=== PATIENT | female | born 1945 | race Caucasian/White ===

== ENCOUNTER 2016-09-27 13:34 | Emergency (ER) | payer MEDICARE, OTHER ==
[~2016-09-27] VITALS: Ht 157.5 cm; Wt 61.2 kg
[~2016-09-27 13:34] MED LIST: ASP81CT PO; EST.625T PO; EZET1TAB43 PO; IBAN150T5 PO; IBUP1TAB PO; IRB150T PO; IRBE300T9 PO; PNT40TEC PO; SAXA1TBM2 PO; SAXA5TAB PO; SOLI10TA4 PO
[2016-09-27] MEDS ORDERED: ESTR0.62 (14:03)
[2016-09-27] MEDS ORDERED: PANT40TA3 (14:03)
[2016-09-27] MEDS ORDERED: IRBE300T18 (14:03)
[2016-09-27 14:25] LABS: BASOPHILS % (AUTO) 0 % (0-10); EOSINOPHILS # (AUTO) 0.1 10^3/uL (0.0-0.3); EOSINOPHILS % (AUTO) 2 % (0-10); LYMPHOCYTES # (AUTO) 1.4 X 10^3 (1.0-4.0); LYMPHOCYTES % (AUTO) 18 % (12-44); MEAN CORPUSCULAR HEMOGLOBIN 33 PG (25-34); MEAN CORPUSCULAR HGB CONC 35 G/DL (32-36); MEAN CORPUSCULAR VOLUME 95 FL (80-99); MEAN PLATELET VOLUME 9.8 FL (7.4-10.4); MONOCYTES # (AUTO) 0.7 X 10^3 (0.0-1.0); MONOCYTES % (AUTO) 9 % (0-12); NEUTROPHILS # (AUTO) 5.6 X 10^3 (1.8-7.8); NEUTROPHILS % (AUTO) 72 % (42-75); PLATELET COUNT 240 10^3/uL (130-400); RED BLOOD COUNT 3.98 10^6/uL (4.35-5.85); RED CELL DISTRIBUTION WIDTH 11.9 % (10.0-14.5); WHITE BLOOD COUNT 7.8 10^3/uL (4.3-11.0)
[2016-09-27] MEDS ORDERED: meTOprolol TARTRATE 25 MG (LOPRESSOR) TABLET PO ONE ×2 (14:30→16:45)
[2016-09-27 14:41] LABS: ALANINE AMINOTRANSFERASE 12 U/L (0-55); ALBUMIN 4.3 G/DL (3.2-4.5); ANION GAP 10 MMOL/L (5-14); ASPARTATE AMINO TRANSFERASE 16 U/L (5-34); BILIRUBIN,TOTAL 0.6 MG/DL (0.1-1.0); BLOOD UREA NITROGEN 12 MG/DL (7-18); BUN/CREATININE RATIO 14; CALCIUM 9.7 MG/DL (8.5-10.1); CARBON DIOXIDE 23 MMOL/L (21-32); CHLORIDE 102 MMOL/L (98-107); CREATININE SERUM 0.88 MG/DL (0.60-1.30); GFR ESTIMATED > 60; GLUCOSE 109 MG/DL (70-105); POTASSIUM 3.9 MMOL/L (3.6-5.0); SODIUM 135 MMOL/L (135-145)
[2016-09-27 15:02] LABS: BILIRUBIN,URINE NEGATIVE (NEGATIVE); KETONES,URINE NEGATIVE (NEGATIVE); LEUKOCYTE ESTERASE ,URINE NEGATIVE (NEGATIVE); NITRITE,URINE NEGATIVE (NEGATIVE); PH,URINE 7 (5-9); PROTEIN,URINE NEGATIVE (NEGATIVE); UROBILINOGEN,URINE NORMAL (NORMAL)
--- NOTE | 2016-09-27 15:05 | Diagnostic Imaging Report ---
CLINICAL INDICATION: Patient with trouble speaking since Saturday. Patient has high blood pressure, no surgery. EXAM: Axial CT scan of the brain performed without IV contrast. COMPARISON: None. FINDINGS: There is no evidence of acute cerebral infarct, intracranial hemorrhage, or gross mass effect. There are focal and patchy areas of low-attenuation white matter changes in both cerebral hemispheres. There is normal conte-white matter distinction. The brain parenchymal volume appears appropriate for patient's age. There is no significant midline shift or herniation. There is no evidence of hydrocephalus. The basal cisterns are unremarkable. The skull, extracranial soft tissue, and orbits are unremarkable. There is mild mucosal thickening in the ethmoid sinus. IMPRESSION: 1: There are focal and patchy areas of low-attenuation white matter changes seen throughout both cerebral hemispheres which may represent chronic small vessel ischemic disease. There is no comparison study to evaluate for interval changes, and if there is concern for acute cerebral infarct, then MRI of the brain would better evaluate. 2: There is no evidence of intracranial hemorrhage, midline shift, or herniation. 3: There is mild ethmoid sinus mucosal thickening. Dictated by: Dictated on workstation # [id number]
[2016-09-27 15:09] LABS: SQUAMOUS EPITHELIAL CELL,UR 0-2 /HPF
--- NOTE | 2016-09-27 16:25 | ED Neurological Problem ---
General Chief Complaint: Neuro-Stroke Like Symptoms Stated Complaint: CONFUSED/HEADACHE Nursing Triage Note: AMBULATED TO ROOM 05 WITHOUT DIFFICULTY. STATES STARTING SATURDAY AROUND NOON SHE BECAME CONFUSED AND COULD NOT GET OUT WHAT SHE WANTS TO SAY OR IS SAYING THE WRONG THING. PT STATES HER SYMPTOMS COME AND GO. PT STATES HER LEFT BREAST HURTS BUT THINKS IT IS RELATED TO A MAMMOGRAM IN JULY SHE HAD. Nursing Sepsis Screen: No Definite Risk Source: patient, family Exam Limitations: no limitations History of Present Illness Time seen by provider: 16:20 Initial Comments The patient is a 71-year-old white female who presents with complaints of some speech difficulty since last Saturday. She reports that they had been to [facility] on Saturday and then were having lunch. She reported that she became aware that she could not say what she wished to say. She could not effectively express herself. There were no visual abnormalities. There was no motor weakness. She reports and her confirms that although the speech is clear the thought is not always correct. For example at breakfast this morning she stated that she had cooked him a good supper. At this time her words are clear and she is quite careful and slow in her delivery Timing/Duration: other (4 days) Associated Symptoms: slurred speech (word salad) Allergies and Home Medications Allergies Coded Allergies: Penicillins (Unverified Allergy, Unknown, 01/04/15) Home Medications Estrogens, Conjugated 0.625 Mg Tablet #90 (Reported) Estrogens,Conjugated 0.625 Mg Tablet 0.625 TAB PO DAILY (Reported) Ezetimibe/Simvastatin 1 Each Tablet 0.5 TAB PO HS (Reported) Ibandronate Sodium 150 Mg Tablet 150 MG PO monthly (Reported) Ibuprofen/Pseudoephedrine Hcl 1 Tab Tablet 1 TAB PO PRN PRN PRN HEADACHE ( Reported) Irbesartan 300 Mg Tablet 300 MG PO DAILY (Reported) Irbesartan 300 Mg Tablet #90 (Reported) Pantoprazole Sod 40 Mg Tab 40 MG PO DAILY (Reported) Pantoprazole Sodium 40 Mg Tablet.dr #90 (Reported) Saxagliptin Hcl/Metformin Hcl 1 Each Tbmp.24hr 1 EACH PO DAILY (Reported) Solifenacin Succinate 10 Mg Tablet 10 MG PO DAILY (Reported) Constitutional: see HPI Eyes: No Symptoms Reported Ears, Nose, Mouth, Throat: no symptoms reported Respiratory: no symptoms reported Cardiovascular: no symptoms reported Gastrointestinal: no symptoms reported Genitourinary: no symptoms reported Musculoskeletal: no symptoms reported Skin: no symptoms reported Psychiatric/Neurological: Other (speech abnormality as described above) Endocrine: No Symptoms Reported Hematologic/Lymphatic: No Symptoms Reported Past Szdwdcu-[id number]-Qqzmpz Hx Patient Social History Alcohol Use: Occasionally Uses Recreational Drug Use: No Smoking Status: Never a Smoker Recent Foreign Travel: No Contact w/Someone Who Travel: No Recent Infectious Disease Expo: No Recent Hopitalizations: No (OUT PT & OVER NIGHT) Physical Abuse Screen: No Sexual Abuse: No Immunizations Up To Date Date of Pneumonia Vaccine: Jan 04, 2010 Date of Influenza Vaccine: Jun 15, 2011 Surgeries HX Surgeries: Yes Respiratory Hx Respiratory Disorders: No Cardiovascular Hx Cardiac Disorders: Yes Cardiac Disorders: Hypertension Neurological Hx Neurological Disorders: No Reproductive System Hx Reproductive Disorders: No Sexually Transmitted Disease: No HIV/AIDS: No Female Reproductive Disorders: Denies Genitourinary Hx Genitourinary Disorders: Yes (incontinence) Gastrointestinal Hx Gastrointestinal Disorders: No Musculoskeletal Hx Musculoskeletal Disorders: No Endocrine Hx Endocrine Disorders: Yes Endocrine Disorders: Diabetes, Non-Insulin dep HEENT HX ENT Disorders: No Loss of Vision: Denies Hearing Impairment: Denies Cancer Hx Cancer: No Psychosocial Hx Psychiatric Problems: No Integumentary HX Skin/Integumentary Disorder: No Blood Transfusions Hx Blood Disorders: No Adverse Reaction to a Blood Tr: No Physical Exam Vital Signs Vital Sign - Last 12Hours 09/27/16 13:56 Temp 98.0 Pulse 94 Resp 18 B/P 239/139 Pulse Ox 98 O2 Delivery Room Air Capillary Refill : Less Than 3 Seconds General Appearance: mild distress other HEENT: PERRL/EOMI normal ENT inspection TMs normal pharynx normal Neck: non-tender full range of motion supple normal inspection Respiratory: chest non-tender lungs clear normal breath sounds no respiratory distress no accessory muscle use respiratory distress Cardiovascular: systolic murmur (grade 1-2 systolic murmur at left upper sternal border) Gastrointestinal: normal bowel sounds non tender soft no organomegaly no pulsatile mass Back: normal inspection Extremities: normal range of motion non-tender normal inspection no pedal edema no calf tenderness normal capillary refill pelvis stable Crainal Nerves: normal hearing normal speech PERRL abnormal eye position Skin: normal color warm/dry Lymphatic: no adenopathy Comments There are occasional minor word errors with speech. There is no facial droop no ptosis. She is able to arch the brow. Manager Leadership Development is 2+ and equal bilaterally. She is able to perform alternating finger to thumb movements bilaterally normally. Biceps and triceps are normal bilaterally. She is able to straight leg lift equally bilaterally she is able to run her heel down the opposing doherty equally and bilaterally. Stroke NIH Stroke Scale Assessment Level of Consciousness: 0=Alert Level of Consciousness-Questio: 0=Answers both month/age LOC Commands: 0=Performs both tasks Gaze: 0=Normal Visual Mayo: 0=No visual loss Facial Movement (Facial Paresi: 0=Normal symmetrical mnt Motor Function-Arms Right: 0=No drift Motor Function-Arms Left: 0=No drift Motor Function-Legs Right: 0=No drift Motor Function-Legs Left: 0=No drift Limb Ataxia: 0=Absent Sensory: 0=Normal:no loss Best Language: 0=No aphasia Dysarthria: 0=Normal Extinction & Inattention: 0=No abnormality Progress/Results/Core Measures Results/Orders Lab Results Laboratory Tests Test 09/27/16 14:10 09/27/16 14:50 Range/Units Alanine Aminotransferase (ALT/SGPT) 12 0-55 U/L Albumin 4.3 3.2-4.5 G/DL Alkaline Phosphatase 46 40-136 U/L Anion Gap 10 5-14 MMOL/L Aspartate Amino Transf (AST/SGOT) 16 5-34 U/L BUN/Creatinine Ratio 14 Basophils # (Auto) 0.0 0.0-0.1 10^3/uL Basophils (%) (Auto) 0 0-10 % Blood Urea Nitrogen 12 7-18 MG/DL Calcium Level 9.7 8.5-10.1 MG/DL Carbon Dioxide Level 23 21-32 MMOL/L Chloride Level 102 98-107 MMOL/L Creatinine 0.88 0.60-1.30 MG/DL Eosinophils # (Auto) 0.1 0.0-0.3 10^3/uL Eosinophils (%) (Auto) 2 0-10 % Estimat Glomerular Filtration Rate > 60 Glucose Level 109 H 70-105 MG/DL Hematocrit 38 35-52 % Hemoglobin 13.0 11.5-16.0 G/DL Lymphocytes # (Auto) 1.4 1.0-4.0 X 10^3 Lymphocytes (%) (Auto) 18 12-44 % Mean Corpuscular Hemoglobin 33 25-34 PG Mean Corpuscular Hemoglobin Concent 35 32-36 G/DL Mean Corpuscular Volume 95 80-99 FL Mean Platelet Volume 9.8 7.4-10.4 FL Monocytes # (Auto) 0.7 0.0-1.0 X 10^3 Monocytes (%) (Auto) 9 0-12 % Neutrophils # (Auto) 5.6 1.8-7.8 X 10^3 Neutrophils (%) (Auto) 72 42-75 % Platelet Count 240 130-400 10^3/uL Potassium Level 3.9 3.6-5.0 MMOL/L Red Blood Count 3.98 L 4.35-5.85 10^6/uL Red Cell Distribution Width 11.9 10.0-14.5 % Sodium Level 135 135-145 MMOL/L Total Bilirubin 0.6 0.1-1.0 MG/DL Total Protein 7.0 6.4-8.2 G/DL White Blood Count 7.8 4.3-11.0 10^3/uL Urine Bacteria NEGATIVE /HPF Urine Bilirubin NEGATIVE NEGATIVE Urine Casts NONE /LPF Urine Clarity CLEAR Urine Color YELLOW Urine Crystals NONE /LPF Urine Culture Indicated NO Urine Glucose (UA) NEGATIVE NEGATIVE Urine Ketones NEGATIVE NEGATIVE Urine Leukocyte Esterase NEGATIVE NEGATIVE Urine Mucus NEGATIVE /LPF Urine Nitrite NEGATIVE NEGATIVE Urine Protein NEGATIVE NEGATIVE Urine RBC NONE /HPF Urine RBC (Auto) NEGATIVE NEGATIVE Urine Specific [place] 1.005 L 1.016-1.022 Urine Squamous Epithelial Cells 0-2 /HPF Urine Urobilinogen NORMAL NORMAL MG/DL Urine WBC NONE /HPF Urine pH 7 5-9 My Orders Orders-NATACHA BONILLA MD Ekg Tracing (09/27/16 14:17) Ct Head Wo (09/27/16 14:17) Cbc With Automated Diff (09/27/16 14:17) Comprehensive Metabolic Panel (09/27/16 14:17) Ua Culture If Indicated (09/27/16 14:17) Metoprolol Tartrate (Ir) Tab (Lopressor (09/27/16 14:30) Medications Given in ED Current Medications Medications Dose Ordered Sig/Bret Route Start Time Stop Time Status Last Admin Dose Admin Metoprolol Tartrate 25 mg ONCE ONCE PO 09/27/16 14:30 09/27/16 14:31 DC 09/27/16 14:27 25 MG Vital Signs/I&O Vital Sign - Last 12Hours 09/27/16 13:56 Temp 98.0 Pulse 94 Resp 18 B/P 239/139 Pulse Ox 98 O2 Delivery Room Air Blood Pressure Mean: 172 Departure Communication Progress Notes CT scan shows no area of bleeding stroke or abscess or tumor. Impression Impression: Primary Impression: small vessel disease with mini stroke Disposition: HOME, SELF-CARE Condition: Stable/Unchanged Departure-Patient Inst. Decision time for Depature: 16:29 Referrals: LETICIA MUÑOZ MD (PCP/Family) Primary Care Physician Add. Discharge Instructions: All discharge instructions reviewed with patient and/or family. Voiced understanding. Take one 325 mg aspirin daily Take metoprolol 25 mg twice daily Make appointment to see Dr. Muñoz next week Scripts Metoprolol Tartrate 25 Mg [id number] Mg PO BID #60 TAB Prov:NATACHA BONILLA MD 09/27/16 NATACHA BONILLA MD Sep 27, 2016 16:25
[2016-09-27] MEDS ORDERED: METO-333 PO (16:31)
[2016-09-27] MEDS ORDERED: ASPIRIN 325 MG (5 GR) TABLET PO ONE (16:45)
[2016-09-27 16:53] VITALS: BP 182/87
== END 2016-09-27 16:53 | disposition home or self-care (01) ==
LOC: EDUNIT# 13:34 → ER 13:39
DX: G45.9 Transient cerebral ischemic attack, unspecified (principal); I10 Essential (primary) hypertension; Z79.899 Other long term (current) drug therapy
CPT/HCPCS: 36415; 70450; 80053; 81000; 85025; 93005

== ENCOUNTER → 2016-11-19 | Outpatient (CLI) | payer MEDICARE, OTHER ==
[~2016-11-19] MED LIST changes: +ESTR0.62; +IRBE300T18; +METO-333 PO; +PANT40TA3
--- OUTSIDE RECORDS SUMMARY | 2016-11-19 12:34 | XMS REPORT | Continuity of Care Document ---
Author Author [facility] Organization 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 Name Role Phone LETICIA MUÑOZ MD PCP Insurance Providers Payer Name Policy Number Subscriber Name Relationship [employer] [id number] Larisa Leonardobrian Barker 19 Self / Same As Patient [facility] [id number] Gerri Leonardo Marcie Self / Same As Patient Advance Directives Directive Response Recorded Date/Time Advance Directives No 09/27/16 1:59pm Health Care Power of Professional Development Manager No 01/04/15 7:13am Organ Donor No 01/04/15 7:13am Resuscitation Status Full Code 09/27/16 1:59pm Chief Complaint and Reason for Visit Chief Complaint Neuro-Stroke Like Symptoms Reason for Visit small vessel disease with mini stroke Problems No problem information available. Medications Current Home Medications Medication Dose Units Route Directions Days/Qty Instructions Start Date Ezetimibe/Simvastatin 1 Each 0.5 Tab Oral Bedtime 01/16/12 Estrogens Conjugated 0.625 Mg 0.625 Tab Oral Daily 01/16/12 Pantoprazole Sod 40 Mg 40 Mg Oral Daily 01/17/12 Irbesartan 300 Mg 300 Mg Oral Daily 01/17/12 Solifenacin 10 Mg 10 Mg Oral Daily 12/30/14 Saxagliptin Hcl/Metformin Hcl 1 Each 1 Each Oral Daily 04/23/15 Ibandronate Sodium 150 Mg 150 Mg Oral Monthly 12/30/14 Ibuprofen/Pseudoephedrine Hcl 1 Tab 1 Tab Oral As Needed as needed for Headache 12/30/14 Irbesartan 300 Mg 90 09/27/16 Estrogens, Conjugated 0.625 Mg 90 09/27/16 Pantoprazole Sodium 40 Mg 90 09/27/16 Metoprolol Tartrate 25 Mg 25 Mg Oral Twice A Day 60 09/27/16 Past Home Medications Medication Directions Ordered Status Irbesartan 150 Mg Tablet, 150 Mg Oral Bedtime 01/16/12 Discontinued Saxagliptin Hydrochloride 5 Mg Tablet, 5 Mg Oral Daily 01/16/12 Discontinued Aspirin 81 Mg Chew, 81 Mg Oral Daily 01/17/12 Discontinued Social History Social History Problem Response Recorded Date/Time Alcohol Use Occasionally Uses 01/04/2015 7:13am Recreational Drug Use No 01/04/2015 7:13am Recent Foreign Travel No 09/27/2016 1:56pm Recent Infectious Disease Exposure No 09/27/2016 1:56pm Sexually Transmitted Disease No 09/27/2016 1:59pm HIV/AIDS No 09/27/2016 1:59pm Smoking Status Never a Smoker 09/27/2016 1:59pm Recent Hopitalizations N OUT PT & OVER NIGHT 09/27/2016 1:59pm Sexually Transmitted Disease No 09/27/2016 1:59pm Query Response Start Date Stop Date Smoking Status Never a Smoker Hospital Discharge Instructions No hospital discharge instructions. Plan of Care Discharge Date 09/27/16 4:53pm Disposition 01 HOME, SELF-CARE Condition at Discharge Stable/Unchanged Prescriptions See Medication Section Referrals LETICIA MUÑOZ MD - Primary Care Physician Additional Instructions/Education All discharge instructions reviewed with patient and/or family. Voiced understanding. Take one 325 mg aspirin daily Take metoprolol 25 mg twice daily Make appointment to see Dr. Muñoz next week Functional Status No functional status results. Allergies, Adverse Reactions, Alerts Allergen Type Severity Reaction Status Last Updated Penicillins ([id number]) Allergy Unknown Active 01/04/15 Immunizations No immunization records. Vital Signs Acute Vital Signs Vital Response Date/Time Temperature (Fahrenheit) 98 degrees F (97.6 - 99.5) 09/27/2016 1:56pm Temperature (Calculated Celsius) 36.6696 degrees C (36.4 - 37.5) 09/27/2016 1 :56pm Temperature Source Tympanic 09/27/2016 1:56pm Pulse Rate (adult) 94 bpm (60 - 90) 09/27/2016 1:56pm Respiratory Rate 18 bpm (12 - 24) 09/27/2016 1:56pm O2 Sat by Pulse Oximetry 98 % (88 - 100) 09/27/2016 1:56pm Blood Pressure 239/139 mm Hg 09/27/2016 1:56pm Blood Pressure Mean 172 mm Hg 09/27/2016 1:56pm Pain Numeric Pain Scale 5-Moderate Pain 09/27/2016 1:56pm Height (Feet) 5 feet 09/27/2016 1:56pm Height (Inches) 2 inches 09/27/2016 1:56pm Height (Calculated Centimeters) 157.513469 cm 09/27/2016 1:56pm Weight (Pounds) 135 pounds 09/27/2016 1:56pm Weight (Calculated Kilograms) 61.019492 kilograms 09/27/2016 1:56pm Capillary Refill Capillary Refill Less Than 3 Seconds 09/27/2016 1:56pm Height 5 ft 2 in Weight 135 lb Body Mass Index 24.7 kg/m^2 Results Laboratory Results Test Name Result Units Flags Reference Collection Date/Time Result Date/ Time Comments White Blood Count 7.8 10^3/uL 4.3-11.0 09/27/2016 2:10pm 09/27/2016 2: 25pm Red Blood Count 3.98 10^6/uL L 4.35-5.85 09/27/2016 2:10pm 09/27/2016 2: 25pm Hemoglobin 13.0 G/DL 11.5-16.0 09/27/2016 2:10pm 09/27/2016 2:25pm Hematocrit 38 % 35-52 09/27/2016 2:10pm 09/27/2016 2:25pm Mean Corpuscular Volume 95 FL 80-99 09/27/2016 2:10pm 09/27/2016 2: 25pm Mean Corpuscular Hemoglobin 33 PG 25-34 09/27/2016 2:10pm 09/27/2016 2: 25pm Mean Corpuscular Hemoglobin Concent 35 G/DL 32-36 09/27/2016 2:10pm 2:25pm Red Cell Distribution Width 11.9 % 10.0-14.5 09/27/2016 2:102016 2:25pm Platelet Count 240 10^3/uL 130-400 09/27/2016 2:10pm 09/27/2016 2:25pm Mean Platelet Volume 9.8 FL 7.4-10.4 09/27/2016 2:10pm 09/27/2016 2: 25pm Neutrophils (%) (Auto) 72 % 42-75 09/27/2016 2:1009/27/2016 2:25pm Lymphocytes (%) (Auto) 18 % 12-44 09/27/2016 2:10pm 09/27/2016 2:25pm Monocytes (%) (Auto) 9 % 0-12 09/27/2016 2:1009/27/2016 2:25pm Eosinophils (%) (Auto) 2 % 0-10 09/27/2016 2:10pm 09/27/2016 2:25pm Basophils (%) (Auto) 0 % 0-10 09/27/2016 2:1009/27/2016 2:25pm Neutrophils # (Auto) 5.6 X 10^3 1.8-7.8 09/27/2016 2:10pm 09/27/2016 2: 25pm Lymphocytes # (Auto) 1.4 X 10^3 1.0-4.0 09/27/2016 2:10pm 09/27/2016 2: 25pm Monocytes # (Auto) 0.7 X 10^3 0.0-1.0 09/27/2016 2:10pm 09/27/2016 2: 25pm Eosinophils # (Auto) 0.1 10^3/uL 0.0-0.3 09/27/2016 2:10pm 09/27/2016 2 :25pm Basophils # (Auto) 0.0 10^3/uL 0.0-0.1 09/27/2016 2:10pm 09/27/2016 2: 25pm Urine Color YELLOW 09/27/2016 2:50pm 09/27/2016 3:09pm Urine Clarity CLEAR 09/27/2016 2:50pm 09/27/2016 3:09pm Urine pH 7 5-9 09/27/2016 2:50pm 09/27/2016 3:09pm Urine Specific [place] 1.005 * 1.016-1.022 09/27/2016 2:50pm 2016 3:09pm Urine Protein NEGATIVE NEGATIVE 09/27/2016 2:50pm 09/27/2016 3:09pm Urine Glucose (UA) NEGATIVE NEGATIVE 09/27/2016 2:50pm 09/27/2016 3: 09pm Urine RBC (Auto) NEGATIVE NEGATIVE 09/27/2016 2:50pm 09/27/2016 3: 09pm Urine Ketones NEGATIVE NEGATIVE 09/27/2016 2:50pm 09/27/2016 3:09pm Urine Nitrite NEGATIVE NEGATIVE 09/27/2016 2:50pm 09/27/2016 3:09pm Urine Bilirubin NEGATIVE NEGATIVE 09/27/2016 2:50pm 09/27/2016 3: 09pm Urine Urobilinogen NORMAL MG/DL NORMAL 09/27/2016 2:50pm 09/27/2016 3: 09pm Urine Leukocyte Esterase NEGATIVE NEGATIVE 09/27/2016 2:50pm 2016 3:09pm Urine RBC NONE /HPF 09/27/2016 2:50pm 09/27/2016 3:09pm Urine WBC NONE /HPF 09/27/2016 2:50pm 09/27/2016 3:09pm Urine Bacteria NEGATIVE /HPF 09/27/2016 2:50pm 09/27/2016 3:09pm Urine Squamous Epithelial Cells 0-2 /HPF 09/27/2016 2:50pm 2016 3:09pm Urine Crystals NONE /LPF 09/27/2016 2:50pm 09/27/2016 3:09pm Urine Casts NONE /LPF 09/27/2016 2:50pm 09/27/2016 3:09pm Urine Mucus NEGATIVE /LPF 09/27/2016 2:50pm 09/27/2016 3:09pm Urine Culture Indicated NO 09/27/2016 2:50pm 09/27/2016 3:09pm Sodium Level 135 MMOL/L 135-145 09/27/2016 2:10pm 09/27/2016 2:43pm Potassium Level 3.9 MMOL/L 3.6-5.0 09/27/2016 2:10pm 09/27/2016 2:43pm Chloride Level 102 MMOL/L 98-107 09/27/2016 2:10pm 09/27/2016 2:43pm Carbon Dioxide Level 23 MMOL/L 21-32 09/27/2016 2:10pm 09/27/2016 2: 43pm Anion Gap 10 MMOL/L 5-14 09/27/2016 2:10pm 09/27/2016 2:43pm Blood Urea Nitrogen 12 MG/DL 7-18 09/27/2016 2:10pm 09/27/2016 2:43pm Creatinine 0.88 MG/DL 0.60-1.30 09/27/2016 2:10pm 09/27/2016 2:43pm BUN/Creatinine Ratio 14 09/27/2016 2:10pm 09/27/2016 2:43pm Estimat Glomerular Filtration Rate > 60 09/27/2016 2:10pm 2016 2:43pm GFR INTERPRETIVE DATA UNITS FOR ESTIMATED GFR (eGFR): mL/min/1.73 M2 REFERENCE RANGE FOR ESTIMATED GFR (eGFR) eGFR NORMAL eGFR >60 MODERATELY DECREASED eGFR 30-59 SEVERLY DECREASED eGFR 15-29 KIDNEY FAILURE <15 (OR DIALYSIS) Glucose Level 109 MG/DL H 70-105 09/27/2016 2:10pm 09/27/2016 2:43pm Calcium Level 9.7 MG/DL 8.5-10.1 09/27/2016 2:10pm 09/27/2016 2:43pm Total Bilirubin 0.6 MG/DL 0.1-1.0 09/27/2016 2:10pm 09/27/2016 2:43pm Alkaline Phosphatase 46 U/L 40-136 09/27/2016 2:10pm 09/27/2016 2:43pm Aspartate Amino Transf (AST/SGOT) 16 U/L 5-34 09/27/2016 2:10pm 2016 2:43pm Alanine Aminotransferase (ALT/SGPT) 12 U/L 0-55 09/27/2016 2:10pm 09/27 2:43pm Total Protein 7.0 G/DL 6.4-8.2 09/27/2016 2:10pm 09/27/2016 2:43pm Albumin 4.3 G/DL 3.2-4.5 09/27/2016 2:10pm 09/27/2016 2:43pm Procedures Procedure Status Date Provider(s) Tracing only of electrocardiogram Active 09/27/16 NATACHA BONILLA MD Encounters Encounter Location Arrival/Admit Date Discharge/Depart Date Attending Provider Departed Emergency Room [facility] 09/27/16 1:39pm 09/27 4:53pm NATACHA BONILLA MD Recent Diagnosis
--- NOTE | 2016-11-20 09:43 | ECHOCARDIOGRAPHY REPORT ---
PROCEDURE PHYSICIAN: MAMADOU MARX DATE OF PROCEDURE: 11/19/2016 TWO DIMENSIONAL ECHOCARDIOGRAM REPORT PRIMARY PHYSICIAN: OTHER PHYSICIAN: REFERRING PHYSICIAN: Dr. Muñoz ORDERING PHYSICIAN: INDICATION FOR THE PROCEDURE: Cardiac murmur. MEASUREMENTS DERIVED VALUES LV DIAMETER (LAX) NORMALS NORMALS Diastolic 4.6 (3.6-5.2) Eject. Fract. 60% (60%+/-6%) Systolic (2.3-3.9) Diastolic Vol. % Shortening (0.22-0.42) Systolic Vol. Aortic Root IVS THICKNESS Diastolic 1.1 (0.6-1.1) LVPW THICKNESS Diastolic 1 (0.6-1.1) LA DIAMETER Systolic 4 (2.1-3.7) FINDINGS: 1. Technical quality is good. 2. The left ventricle is normal in size with normal contractility. Systolic function appeared to be normal. Estimated ejection fraction 60%. 3. The left atrium is normal in size. No clot or thrombus were seen within the left atrium. 4. The right atrium and right ventricle are normal in size. No clot or thrombus were seen within the right side. 5. Mitral valve is normal in morphology with mild mitral regurgitation noted by color Doppler flow. No mitral valve prolapse. No mitral valve stenosis. 6. Aortic valve is trileaflet with normal opening and closing pattern. No significant aortic stenosis or regurgitation was seen. 7. Tricuspid valve is normal in morphology. Insufficient Doppler signal across the tricuspid valve to evaluate pulmonary artery pressure. 8. Pulmonic valve is functioning normally. 9. No pericardial effusion. IN CONCLUSION: 1. Normal left ventricular size and systolic function. Estimated ejection fraction 60%. 2. Mild mitral and tricuspid regurgitation. 3. Estimated pulmonary artery pressure of 20 mmHg. Job ID: [id number] Dictated Date: 11/19/2016 16:46:03 Medical Office Representative Date: 11/20/2016 09:40:32 / tbk
== END ==
LOC: CARD 12:31
PROVIDERS: ATTEND Family Medicine
DX: R01.1 Cardiac murmur, unspecified (principal)
CPT/HCPCS: 93306

== ENCOUNTER → 2017-01-29 | Outpatient (CLI) | payer MEDICARE, OTHER ==
--- NOTE | 2017-01-29 18:45 | Diagnostic Imaging Report ---
Bilateral screening mammogram. The current study was also evaluated with a Computer Aided Detection (CAD) system. INDICATION: Screening. Asymmetry along the outer aspect of the left breast was seen on prior studies. COMPARISON: 08/15/2016. FINDINGS: The breasts are composed of scattered fibroglandular densities. Occasional benign-appearing calcifications are seen. The previously seen asymmetries along the central lateral aspect of the left breast appear slightly less prominent compared to the previous exams, perhaps related to summation artifact of parenchyma. The right breast is stable. Allowing for technique and positional differences, no suspicious change is seen. IMPRESSION: No significant change. ACR BI-RADS Category 2: Benign findings. Result letter will be mailed to the patient. Note: At least 10% of breast cancer is not imaged by mammography. Dictated by: Dictated on workstation # [id number]
== END ==
LOC: RAD 09:32
PROVIDERS: ATTEND Nurse Practitioner Family
DX: Z12.31 Encounter for screening mammogram for malignant neoplasm of breast (principal)
CPT/HCPCS: 77067

== ENCOUNTER → 2017-08-13 | Outpatient (CLI) | payer MEDICARE, OTHER | LOC: RAD 13:12 | PROVIDERS: ATTEND Internal Medicine Cardiovascular Disease | DX: I25.10 Atherosclerotic heart disease of native coronary artery without angina pectoris (principal); I65.29 Occlusion and stenosis of unspecified carotid artery; E11.9 Type 2 diabetes mellitus without complications; I10 Essential (primary) hypertension; E78.4 Other hyperlipidemia | CPT/HCPCS: 93923 ==

== ENCOUNTER → 2018-01-30 | Outpatient (CLI) | payer MEDICARE, OTHER ==
--- NOTE | 2018-01-30 20:40 | Diagnostic Imaging Report ---
INDICATION: Routine screening. COMPARISON: Comparison is made with prior study from 01/29/2017 and 01/18/2016. TECHNIQUE: 2D and 3D bilateral screening mammography was performed with computer-aided detection (CAD) system. FINDINGS: Scattered fibroglandular densities are identified bilaterally. The nodular densities noted in both breasts appear to be stable. No new mass or malignant appearing microcalcifications are seen. The axillae are unremarkable. IMPRESSION: No mammographic features suspicious for malignancy are identified. ACR BI-RADS Category 2: Benign findings. Result letter will be mailed to the patient. Note: At least 10% of breast cancer is not imaged by mammography. Dictated by: Dictated on workstation # [id number]
== END ==
LOC: RAD 11:09
PROVIDERS: ATTEND Family Medicine
DX: Z12.31 Encounter for screening mammogram for malignant neoplasm of breast (principal); I10 Essential (primary) hypertension
CPT/HCPCS: 77067

== ENCOUNTER 2018-05-16 05:41 | Outpatient (CLI) | payer MEDICARE, OTHER ==
[~2018-05-16] VITALS: Ht 156.2 cm; Wt 64.8 kg
[2018-05-16 12:34] VITALS: BP 150/77
[2018-05-16] MEDS ORDERED: EZET1TAB29 PO (13:07)
[2018-05-16] MEDS ORDERED: IBUP1TAB17 PO (13:07)
[2018-05-16] MEDS ORDERED: METO-333 PO (13:07)
[2018-05-16] MEDS ORDERED: ESTR0.62 PO (13:07)
[2018-05-16] MEDS ORDERED: PANT40TA3 PO (13:07)
[2018-05-16] MEDS ORDERED: IBAN150T8 PO (13:07)
[2018-05-16] MEDS ORDERED: SAXA1TBM2 PO (13:07)
[2018-05-16] MEDS ORDERED: AZIL1TAB3 PO (13:10)
[2018-05-16] MEDS ORDERED: ASPI-586 PO (13:10)
[2018-05-16] MEDS ORDERED: HYDR-3923 PO (13:10)
[2018-05-16] MEDS ORDERED: ACET325T38 PO (13:10)
== END 2018-05-16 13:15 | disposition home or self-care (01) ==
LOC: PREOP 05:41
PROVIDERS: ATTEND Urology
DX: Z01.818 Encounter for other preprocedural examination (principal)
CPT/HCPCS: 87081

== ENCOUNTER 2018-05-20 06:55 | Day surgery (SDC) | payer MEDICARE, OTHER ==
[~2018-05-20] VITALS: Ht 156.2 cm; Wt 64.8 kg
[~2018-05-20 06:55] MED LIST changes: +ACET325T38 PO; +ASPI-586 PO; +AZIL1TAB3 PO; +ESTR0.62 PO; +EZET1TAB29 PO; +HYDR-3923 PO; +IBAN150T8 PO; +IBUP1TAB17 PO; +PANT40TA3 PO
[2018-05-20 07:00] VITALS: BP 173/90
--- NOTE | 2018-05-20 07:00 | Progress Note-Pre Operative ---
Pre-Operative Progress Note H&P Reviewed The H&P was reviewed, patient examined and no changes noted. Date Seen by Provider: May 20, 2018 Time Seen by Provider: 07:00 Date H&P Reviewed: May 20, 2018 Time H&P Reviewed: 07:00 Pre-Operative Diagnosis: MIXED INCONTINENCE, OAB, AND ISD BALDEV PEPE MD May 20, 2018 7:00 am
--- NOTE | 2018-05-20 07:01 | Progress Note-Post Operative ---
Post-Operative Progess Note Surgeon (s)/Take Away Worker (s) Surgeon BALDEV PEPE MD Take Away Worker: N/A Pre-Operative Diagnosis MIXED INCONTINENCE, OAB, AND ISD Post-Operative Diagnosis SAME AND CYSTOCELE Procedure & Operative Findings Date of Procedure 05/20/18 Procedure Performed/Findings ANTERIOR REPAIR, PVS AND CYSTO Anesthesia Type GENERAL Estimated Blood Loss Estimated blood loss (mL): LESS THAN 50CC Specimens/Packing Specimens Removed N/A Packing: ESTRACE VAGINAL PACK BALDEV PEPE MD May 20, 2018 7:01 am
--- OUTSIDE RECORDS SUMMARY | 2018-05-20 07:01 | XMS REPORT | Continuity of Care Document ---
Author Author [facility] Organization [facility] Address Unknown Phone Unavailable Allergies Active Description Code Type Severity Reaction Onset Reported/Identified Relationship to Patient Clinical Status Yes PENICILLIN PENICILLIN Unknown N/A 01/16/2012 Yes Penicillins [id number] Drug Allergy Unknown N/A 01/04/2015 Medications There is no data. Problems Date Dx Coded Attending Type Code Diagnosis Diagnosed By 01/17/2012 Ot 250.00 DIAB ROSA MARIA WO COMPL, TYPE II OR UNSPEC TY 01/17/2012 Ot 272.4 HYPERLIPIDEMIA NEC/NOS 01/17/2012 Ot 401.9 HYPERTENSION NOS 01/17/2012 Ot 411.1 INTERMED CORONARY SYND 01/17/2012 Ot V17.49 FAMILY HISTORY OF OTHER CARDIOVASCULAR D 12/14/2014 Ot V76.12 12/14/2014 Ot V76.12 12/14/2014 Ot V76.12 12/14/2014 Ot V76.12 12/14/2014 LETICIA GALDAMEZ MD Ot V76.12 01/04/2015 LETICIA GALDAMEZ MD Ot V76.12 01/04/2015 LETICIA GALDAMEZ MD Ot V76.12 01/04/2015 BALDEV PEPE MD Ot 599.82 01/04/2015 BALDEV PEPE MD Ot 788.30 01/04/2015 BALDEV PEPE MD Ot V72.83 01/04/2015 BALDEV PEPE MD Ot V74.8 01/04/2015 BALDEV PEPE MD Ot 596.51 HYPERTONICITY OF BLADDER 01/04/2015 BALDEV PEPE MD Ot 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 01/04/2015 BALDEV PEPE MD Ot 788.30 UNSPECIFIED URINARY INCONTINENCE 01/04/2015 BALDEV PEPE MD Ot V58.69 OTH MED,LT,CURRENT USE 01/11/2015 LETICIA GALDAMEZ MD Ot V76.12 02/05/2015 MY MENDEZ, BALDEV Soni Ot 599.82 02/05/2015 MY MENDEZ, BALDEV A Ot 788.30 02/05/2015 MY MENDEZ, BALDEV A Ot V72.83 02/05/2015 MY MENDEZ, BALDEV A Ot V74.8 03/03/2015 MY MENDEZ, BALDEV Soni Ot 599.82 03/03/2015 MY MENDEZ, BALDEV A Ot 788.30 03/03/2015 MY MENDEZ, BALDEV A Ot V72.83 03/03/2015 MY MENDEZ, BALDEV A Ot V74.8 01/18/2016 DENICE MENDEZ, LETICIA R Ot V76.12 OTH SCREEN MAMMO-MALIGN NEOPLASM OF SUE 01/18/2016 LETICIA GALDAMEZ MD R Ot V76.12 OTH SCREEN MAMMO-MALIGN NEOPLASM OF SUE 01/18/2016 MY MENDEZ, BALDEV Shafer Ot 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 01/18/2016 MY MENDEZ, BALDEV A Ot 788.30 UNSPECIFIED URINARY INCONTINENCE 01/18/2016 MY MENDEZ, BALDEV Shafer Ot V72.83 EXAM PRE-OPERATIVE NEC 01/18/2016 MY MENDEZ, BALDEV Shafer Ot V74.8 SCREEN-BACTERIAL DIS NEC 01/18/2016 LETICIA GALDAMEZ MD R Ot Z12.31 ENCNTR SCREEN MAMMOGRAM FOR MALIGNANT NE 01/20/2016 LETICIA GALDAMEZ MD R Ot Z12.31 ENCNTR SCREEN MAMMOGRAM FOR MALIGNANT NE 02/03/2016 LETICIA GALDAMEZ MD R Ot N64.89 OTHER SPECIFIED DISORDERS OF BREAST 02/07/2016 LETICIA GALDAMEZ MD R Ot N64.89 OTHER SPECIFIED DISORDERS OF BREAST 02/08/2016 LETICIA GALDAMEZ MD R Ot N64.89 OTHER SPECIFIED DISORDERS OF BREAST 02/14/2016 LETICIA GALDAMEZ MD R Ot Z12.31 ENCNTR SCREEN MAMMOGRAM FOR MALIGNANT NE 02/28/2016 LETICIA GALDAMEZ MD R Ot N64.89 OTHER SPECIFIED DISORDERS OF BREAST 03/03/2016 LETICIA GALDAMEZ MD R Ot N64.89 OTHER SPECIFIED DISORDERS OF BREAST 08/15/2016 Ot V76.12 OTH SCREEN MAMMO-MALIGN NEOPLASM OF SUE 08/15/2016 Ot V76.12 OTH SCREEN MAMMO-MALIGN NEOPLASM OF SUE 08/15/2016 LETICIA GALDAMEZ MD R Ot V76.12 OTH SCREEN MAMMO-MALIGN NEOPLASM OF SUE 08/15/2016 LETICIA GALDAMEZ MD R Ot V76.12 OTH SCREEN MAMMO-MALIGN NEOPLASM OF SUE 08/15/2016 BALDEV PEPE MD Ot 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 08/15/2016 BALDEV PEPE MD Ot 788.30 UNSPECIFIED URINARY INCONTINENCE 08/15/2016 BALDEV PEPE MD Ot V72.83 EXAM PRE-OPERATIVE NEC 08/15/2016 BALDEV PEPE MD Ot V74.8 SCREEN-BACTERIAL DIS NEC 08/15/2016 LETICIA GALDAMEZ MD Ot Z12.31 ENCNTR SCREEN MAMMOGRAM FOR MALIGNANT NE 08/15/2016 LETICIA GALDAMEZ MD R Ot N64.89 OTHER SPECIFIED DISORDERS OF BREAST 08/16/2016 LETICIA GALDAMEZ MD R Ot R92.8 OTH ABN AND INCONCLUSIVE FINDINGS ON DX 08/16/2016 LETICIA GALDAMEZ MD R Ot R92.8 OTH ABN AND INCONCLUSIVE FINDINGS ON DX 09/06/2016 LETICIA GALDAMEZ MD R Ot R92.8 OTH ABN AND INCONCLUSIVE FINDINGS ON DX 09/13/2016 LETICIA GALDAMEZ MD R Ot R92.8 OTH ABN AND INCONCLUSIVE FINDINGS ON DX 09/27/2016 Ot V76.12 OTH SCREEN MAMMO-MALIGN NEOPLASM OF SUE 09/27/2016 Ot V76.12 OTH SCREEN MAMMO-MALIGN NEOPLASM OF SUE 09/27/2016 LETICIA GALDAMEZ MD R Ot V76.12 OTH SCREEN MAMMO-MALIGN NEOPLASM OF SUE 09/27/2016 LETICIA GALDAMEZ MD R Ot V76.12 OTH SCREEN MAMMO-MALIGN NEOPLASM OF SUE 09/27/2016 BALDEV PEPE MD Ot 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 09/27/2016 BALDEV PEPE MD Ot 788.30 UNSPECIFIED URINARY INCONTINENCE 09/27/2016 BALDEV PEPE MD Ot V72.83 EXAM PRE-OPERATIVE NEC 09/27/2016 MY MENDEZ, BALDEV Shafer Ot V74.8 SCREEN-BACTERIAL DIS NEC 09/27/2016 LETICIA GALDAMEZ MD Ot Z12.31 ENCNTR SCREEN MAMMOGRAM FOR MALIGNANT NE 09/27/2016 LETICIA GALDAMEZ MD Ot N64.89 OTHER SPECIFIED DISORDERS OF BREAST 09/27/2016 LETICIA GALDAMEZ MD Ot R92.8 OTH ABN AND INCONCLUSIVE FINDINGS ON DX 09/27/2016 NATACHA BONILLA MD Ot G45.9 TRANSIENT CEREBRAL ISCHEMIC ATTACK, UNSP 09/27/2016 NATACHA BONILLA MD Ot I10 ESSENTIAL (PRIMARY) HYPERTENSION 09/27/2016 NATACHA BONILLA MD Ot R51 HEADACHE 09/27/2016 NATACHA BONILLA MD Ot 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 09/28/2016 NATACHA BONILLA MD Ot G45.9 TRANSIENT CEREBRAL ISCHEMIC ATTACK, UNSP 09/28/2016 NATACHA BONILLA MD Ot I10 ESSENTIAL (PRIMARY) HYPERTENSION 09/28/2016 NATACHA BONILLA MD Ot R51 HEADACHE 09/28/2016 NATACHA BONILLA MD Ot Z79.899 OTHER INTERMEDIATE (CURRENT) DRUG THERAPY 09/29/2016 NATACHA BONILLA MD Ot G45.9 TRANSIENT CEREBRAL ISCHEMIC ATTACK, UNSP 09/29/2016 NATACHA BONILLA MD Ot I10 ESSENTIAL (PRIMARY) HYPERTENSION 09/29/2016 NATACHA BONILLA MD Ot R51 HEADACHE 09/29/2016 NATACHA BONILLA MD Ot Z79.899 OTHER INTERMEDIATE (CURRENT) DRUG THERAPY 12/11/2016 LETICIA GALDAMEZ MD R Ot R01.1 CARDIAC MURMUR, UNSPECIFIED 12/26/2016 LETICIA GALDAMEZ MD R Ot R01.1 CARDIAC MURMUR, UNSPECIFIED 02/20/2017 EYAD BOATENG Ot Z12.31 ENCNTR SCREEN MAMMOGRAM FOR MALIGNANT NE 07/04/2017 Ot V76.12 OTH SCREEN MAMMO-MALIGN NEOPLASM OF SUE 07/04/2017 LETICIA GALDAMEZ MD Ot V76.12 OTH SCREEN MAMMO-MALIGN NEOPLASM OF SUE 07/04/2017 LETICIA GALDAMEZ MD Ot V76.12 OTH SCREEN MAMMO-MALIGN NEOPLASM OF SUE 07/04/2017 BALDEV PEPE MD Ot 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 07/04/2017 BALDEV PEPE MD Ot 788.30 UNSPECIFIED URINARY INCONTINENCE 07/04/2017 BALDEV PEPE MD Ot V72.83 EXAM PRE-OPERATIVE NEC 07/04/2017 BALDEV PEPE MD Ot V74.8 SCREEN-BACTERIAL DIS NEC 07/04/2017 LETICIA GALDAMEZ MD R Ot Z12.31 ENCNTR SCREEN MAMMOGRAM FOR MALIGNANT NE 07/04/2017 LETICIA GALDAMEZ MD R Ot N64.89 OTHER SPECIFIED DISORDERS OF BREAST 07/04/2017 LETICIA GALDAMEZ MD R Ot R92.8 OTH ABN AND INCONCLUSIVE FINDINGS ON DX 07/04/2017 LETICIA GALDAMEZ MD Ot R01.1 CARDIAC MURMUR, UNSPECIFIED 07/04/2017 EYAD BOATENG Ot Z12.31 ENCNTR SCREEN MAMMOGRAM FOR MALIGNANT NE 07/30/2017 JESSENIA MENDEZ FACC, JAYY FACP CCDS Ot E78.4 OTHER HYPERLIPIDEMIA 07/30/2017 JESSENIA MEDNEZ FACC, ALI FACP CCDS Ot I10 ESSENTIAL (PRIMARY) HYPERTENSION 07/30/2017 JESSENIA MENDEZ FACC, JAYY FACP CCDS Ot I25.10 ATHSCL HEART DISEASE OF [place] CORONARY 07/30/2017 JESSENIA MENDEZ FACC, ALI FACP CCDS Ot R06.02 SHORTNESS OF BREATH 08/09/2017 JESSENIA MENDEZ FACC, ALI FACP CCDS Ot I25.10 ATHSCL HEART DISEASE OF [place] CORONARY 08/12/2017 JESSENIA MENDEZ FACC ALI FACP CCDS Ot I25.10 ATHSCL HEART DISEASE OF [place] CORONARY 08/14/2017 JESSENIA MENDEZ FACC ALI FACP CCDS Ot E78.4 OTHER HYPERLIPIDEMIA 08/14/2017 JESSENIA MENDEZ FACC, ALI FACP CCDS Ot I10 ESSENTIAL (PRIMARY) HYPERTENSION 08/14/2017 JESSENIA MENDEZ FACC ALI FACP CCDS Ot I25.10 ATHSCL HEART DISEASE OF [place] CORONARY 08/14/2017 JESSENIA MENDEZ FACC, ALI FACP CCDS Ot R06.02 SHORTNESS OF BREATH 09/04/2017 JESSENIA MENDEZ [facility], ALI FACP CCDS Ot E11.9 TYPE 2 DIABETES MELLITUS WITHOUT COMPLIC 09/04/2017 JESSENIA MENDEZ FAC, ALI FACP CCDS Ot E78.4 OTHER HYPERLIPIDEMIA 09/04/2017 JESSENIA MENDEZ FACC, ALI FACP CCDS Ot I10 ESSENTIAL (PRIMARY) HYPERTENSION 09/04/2017 JESSENIA MENDEZ FAC, ALI FACP CCDS Ot I25.10 ATHSCL HEART DISEASE OF [place] CORONARY 09/04/2017 JESSENIA MENDEZ FAC, ALI FACP CCDS Ot I65.29 OCCLUSION AND STENOSIS OF UNSPECIFIED CA 09/12/2017 JESSENIA MENDEZ [facility], ALI FACP CCDS Ot E11.9 TYPE 2 DIABETES MELLITUS WITHOUT COMPLIC 09/12/2017 JESSENIA MENDEZ FAC, ALI FACP CCDS Ot E78.4 OTHER HYPERLIPIDEMIA 09/12/2017 JESSENIA MENDEZ FAC, ALI FACP CCDS Ot I10 ESSENTIAL (PRIMARY) HYPERTENSION 09/12/2017 JESSENIA MENDEZ [facility], ALI FACP CCDS Ot I25.10 ATHSCL HEART DISEASE OF [place] CORONARY 09/12/2017 JESSENIA MENDEZ [facility], ALI FACP CCDS Ot I65.29 OCCLUSION AND STENOSIS OF UNSPECIFIED [place] 01/30/2018 Ot V76.12 OTH SCREEN MAMMO-MALIGN NEOPLASM OF SUE 01/30/2018 LETICIA GALDAMEZ MD R Ot V76.12 OTH SCREEN MAMMO-MALIGN NEOPLASM OF SUE 01/30/2018 LETICIA GALDAMEZ MD Ot V76.12 OTH SCREEN MAMMO-MALIGN NEOPLASM OF SUE 01/30/2018 BALDEV PEPE MD Ot 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 01/30/2018 BALDEV PEPE MD Ot 788.30 UNSPECIFIED URINARY INCONTINENCE 01/30/2018 BALDEV PEPE MD Ot V72.83 EXAM PRE-OPERATIVE NEC 01/30/2018 BALDEV PEPE MD Ot V74.8 SCREEN-BACTERIAL DIS NEC 01/30/2018 LETICIA GALDAMEZ MD Ot Z12.31 ENCNTR SCREEN MAMMOGRAM FOR MALIGNANT NE 01/30/2018 LETICIA GALDAMEZ MD Ot N64.89 OTHER SPECIFIED DISORDERS OF BREAST 01/30/2018 LETICIA GALDAMEZ MD Ot R92.8 OTH ABN AND INCONCLUSIVE FINDINGS ON DX 01/30/2018 LETICIA GALDAMEZ MD R Ot R01.1 CARDIAC MURMUR, UNSPECIFIED 01/30/2018 EYAD BOATENG Ot Z12.31 ENCNTR SCREEN MAMMOGRAM FOR MALIGNANT NE 01/30/2018 JESSENIA MENDEZ FAC, ALI FACP CCDS Ot E78.4 OTHER HYPERLIPIDEMIA 01/30/2018 JESSENIA MENDEZ FAC, ALI FACP CCDS Ot I10 ESSENTIAL (PRIMARY) HYPERTENSION 01/30/2018 JESSENIA MENDEZ [facility], ALI FACP CCDS Ot I25.10 ATHSCL HEART DISEASE OF [place] CORONARY 01/30/2018 JESSENIA MENDEZ FAC, ALI FACP CCDS Ot R06.02 SHORTNESS OF BREATH 01/30/2018 JESSENIA MENDEZ FAC, ALI FACP CCDS Ot E11.9 TYPE 2 DIABETES MELLITUS WITHOUT COMPLIC 01/30/2018 JESSENIA MENDEZ FAC, ALI FACP CCDS Ot E78.4 OTHER HYPERLIPIDEMIA 01/30/2018 JESSENIA MENDEZ FAC, ALI FACP CCDS Ot I10 ESSENTIAL (PRIMARY) HYPERTENSION 01/30/2018 JESSENIA MENDEZ [facility], ALI FACP CCDS Ot I25.10 ATHSCL HEART DISEASE OF [place] CORONARY 01/30/2018 JESSENIA MENDEZ [facility], ALI FACP CCDS Ot I65.29 OCCLUSION AND STENOSIS OF UNSPECIFIED CA 01/30/2018 LETICIA GALDAMEZ MD R Ot Z12.31 ENCNTR SCREEN MAMMOGRAM FOR MALIGNANT NE 01/31/2018 LETICIA GALDAMEZ MD R Ot I10 ESSENTIAL (PRIMARY) HYPERTENSION 01/31/2018 LETICIA GALDAMEZ MD R Ot Z12.31 ENCNTR SCREEN MAMMOGRAM FOR MALIGNANT NE 02/19/2018 LETICIA GALDAMEZ MD R Ot I10 ESSENTIAL (PRIMARY) HYPERTENSION 02/19/2018 LETICIA GALDAMEZ MD R Ot Z12.31 ENCNTR SCREEN MAMMOGRAM FOR MALIGNANT NE Procedures There is no data. Results Test Result Range Complete blood count (CBC) with automated white blood cell (WBC) differential - 09/27/16 14:10 Blood leukocytes automated count (number/volume) 7.8 10*3/uL 4.3-11.0 Blood erythrocytes automated count (number/volume) 3.98 10*6/uL 4.35-5.85 Venous blood hemoglobin measurement (mass/volume) 13.0 g/dL 11.5-16.0 Blood hematocrit (volume fraction) 38 % 35-52 Automated erythrocyte mean corpuscular volume 95 [foz_us] 80-99 Automated erythrocyte mean corpuscular hemoglobin (mass per erythrocyte) 33 pg 25-34 Automated erythrocyte mean corpuscular hemoglobin concentration measurement ( mass/volume) 35 g/dL 32-36 Automated erythrocyte distribution width ratio 11.9 % 10.0-14.5 Automated blood platelet count (count/volume) 240 10*3/uL 130-400 Automated blood platelet mean volume measurement 9.8 [foz_us] 7.4-10.4 Automated blood neutrophils/100 leukocytes 72 % 42-75 Automated blood lymphocytes/100 leukocytes 18 % 12-44 Blood monocytes/100 leukocytes 9 % 0-12 Automated blood eosinophils/100 leukocytes 2 % 0-10 Automated blood basophils/100 leukocytes 0 % 0-10 Blood neutrophils automated count (number/volume) 5.6 10*3 1.8-7.8 Blood lymphocytes automated count (number/volume) 1.4 10*3 1.0-4.0 Blood monocytes automated count (number/volume) 0.7 10*3 0.0-1.0 Automated eosinophil count 0.1 10*3/uL 0.0-0.3 Automated blood basophil count (count/volume) 0.0 10*3/uL 0.0-0.1 Comprehensive metabolic panel - 09/27/16 14:10 Serum or plasma sodium measurement (moles/volume) 135 mmol/L 135-145 Serum or plasma potassium measurement (moles/volume) 3.9 mmol/L 3.6-5.0 Serum or plasma chloride measurement (moles/volume) 102 mmol/L 98-107 Carbon dioxide 23 mmol/L 21-32 Serum or plasma anion gap determination (moles/volume) 10 mmol/L 5-14 Serum or plasma urea nitrogen measurement (mass/volume) 12 mg/dL 7-18 Serum or plasma creatinine measurement (mass/volume) 0.88 mg/dL 0.60-1.30 Serum or plasma urea nitrogen/creatinine mass ratio 14 NRG Serum or plasma creatinine measurement with calculation of estimated glomerular filtration rate > NRG Serum or plasma glucose measurement (mass/volume) 109 mg/dL 70-105 Serum or plasma calcium measurement (mass/volume) 9.7 mg/dL 8.5-10.1 Serum or plasma total bilirubin measurement (mass/volume) 0.6 mg/dL 0.1-1.0 Serum or plasma alkaline phosphatase measurement (enzymatic activity/volume) 46 U/L 40-136 Serum or plasma aspartate aminotransferase measurement (enzymatic activity/ volume) 16 U/L 5-34 Serum or plasma alanine aminotransferase measurement (enzymatic activity/volume ) 12 U/L 0-55 Serum or plasma protein measurement (mass/volume) 7.0 g/dL 6.4-8.2 Serum or plasma albumin measurement (mass/volume) 4.3 g/dL 3.2-4.5 Complete urinalysis with reflex to culture - 09/27/16 14:50 Urine color determination YELLOW NRG Urine clarity determination CLEAR NRG Urine pH measurement by test strip 7 5-9 Specific gravity of urine by test strip 1.005 1.016- 1.022 Urine protein assay by test strip, semi-quantitative NEGATIVE NEGATIVE Urine glucose detection by automated test strip NEGATIVE NEGATIVE Erythrocytes detection in urine sediment by light microscopy NEGATIVE NEGATIVE Urine ketones detection by automated test strip NEGATIVE NEGATIVE Urine nitrite detection by test strip NEGATIVE NEGATIVE Urine total bilirubin detection by test strip NEGATIVE NEGATIVE Urine urobilinogen measurement by automated test strip (mass/volume) NORMAL NORMAL Urine leukocyte esterase detection by dipstick NEGATIVE NEGATIVE Automated urine sediment erythrocyte count by microscopy (number/high power field) NONE NRG Automated urine sediment leukocyte count by microscopy (number/high power field ) NONE NRG Bacteria detection in urine sediment by light microscopy NEGATIVE NRG Squamous epithelial cells detection in urine sediment by light microscopy 0-2 NRG Crystals detection in urine sediment by light microscopy NONE NRG Casts detection in urine sediment by light microscopy NONE NRG Mucus detection in urine sediment by light microscopy NEGATIVE NRG Complete urinalysis with reflex to culture NO NRG Encounters ACCT No. Visit Date/Time Discharge Status Pt. Type Provider Facility Loc./Unit Complaint [id number] 01/30/2018 11:09:00 01/30/2018 23:59:59 CLS Outpatient LETICIA GALDAMEZ MD [facility] RAD SCREENING [id number] 08/13/2017 13:12:00 08/13/2017 23:59:59 CLS Outpatient JESSENIA MENDEZ FACC, JAYY OLIVEROS CCDS [facility] RAD CAD I25.10 [id number] 07/09/2017 11:04:00 07/09/2017 23:59:59 CLS Outpatient JESSENIA MENDEZ FACCJAYY FACP CCDS [facility] CARD CAD [id number] 01/29/2017 09:32:00 01/29/2017 23:59:59 CLS Outpatient ROLDAN EYAD PONCE [facility] RAD SCREENING [id number] 11/19/2016 12:31:00 11/19/2016 23:59:59 CLS Outpatient LETICIA GALDAMEZ MD [facility] CARD SYSTOLIC MURMUR [id number] 09/27/2016 13:39:00 09/27/2016 16:53:00 DIS Emergency NATACHA BONILLA MD [facility] ER CONFUSED/HEADACHE [id number] 08/15/2016 12:00:00 08/15/2016 23:59:59 CLS Outpatient LETICIA GALDAMEZ MD [facility] RAD F/U LEFT BREAST ULTRASOUND [id number] 02/02/2016 07:46:00 02/02/2016 23:59:59 CLS Outpatient LETICIA GALDAMEZ MD [facility] RAD CENTRAL ASPECT ASYMMETRY [id number] 01/18/2016 09:38:00 01/18/2016 23:59:59 CLS Outpatient LETICIA GALDAMEZ MD [facility] RAD ROUTINE [id number] 01/04/2015 06:09:00 01/04/2015 09:45:00 DIS Outpatient BALDEV PEPE MD [facility] SDC ISU W/STRESS URINARY INCONTINENCES [id number] 12/30/2014 12:32:00 12/30/2014 23:59:59 CLS Outpatient BALDEV PEPE MD [facility] PREOP ISU INCONTINENCES [id number] 12/14/2014 09:57:00 12/14/2014 23:59:59 CLS Outpatient LETICIA GALDAMEZ MD [facility] RAD SCREENING [id number] 10/06/2013 08:36:00 10/06/2013 23:59:59 CLS Outpatient DENICE MENDEZ, LETICIA Lomas [facility] RAD SCREENING [id number] 12/14/2014 09:57:00 Document Registration [id number] 08/21/2012 11:01:00 Document Registration [id number] 01/16/2012 16:00:00 Document Registration [id number] 08/20/2011 09:36:00 Document Registration [id number] 08/07/2010 08:26:00 Document Registration
[2018-05-20] MEDS ORDERED: ESTRADIOL VAGINAL CREAM 42.5 GM (ESTRACE) VG ONE (07:12)
[2018-05-20] MEDS ORDERED: LIDOCAINE/EPI 1%-1:200,000 (XYLOCAINE) 10 ML VIAL ONE (07:12)
[2018-05-20] MEDS ORDERED: MILK OF MAGNESIA 400 MG/5 ML 30 ML UDC PO PRN (07:15)
[2018-05-20] MEDS: LACTATED RINGERS 1,000 ML IV PRN ×2 (07:15→08:14)
[2018-05-20] MEDS ORDERED: fentaNYL INJECTION 100 MCG/2 ML AMP ONE (07:17)
[2018-05-20] MEDS ORDERED: LIDOCAINE PF 2% 2 ML (XYLOCAINE) VIAL ONE (07:19)
[2018-05-20] MEDS ORDERED: MIDAZOLAM 2 MG/2 ML (VERSED) VIAL ONE (07:19)
[2018-05-20] MEDS ORDERED: cefTRIAXone 1 GM/10 ML for IV (ROCEPHIN) IV ONE (07:20)
[2018-05-20] MEDS ORDERED: NS (IVPB) 50 ML ONE (07:20)
[2018-05-20] MEDS ORDERED: ONDANSETRON 4 MG/2 ML (SDV) Z0FRAN ONE (07:22)
[2018-05-20] MEDS ORDERED: SEVOFLURANE (ULTANE) 15 ML INHAL SOLN ONE ×4 (07:22→08:35)
[2018-05-20] MEDS ORDERED: proPOfol 200 MG/20 ML (DIPRIVAN) VIAL IV ONE (07:22)
[2018-05-20] MEDS ORDERED: MIDAZOLAM 2 MG/2 ML (VERSED) VIAL IV ONE (07:30)
[2018-05-20] MEDS ORDERED: cefTRIAXone FOR IV USE 1,000 MG in NS (IVPB) 50 ML IV ONE (07:30)
[2018-05-20] MEDS ORDERED: GLYCOPYRROLATE 0.2 MG/ML (ROBINUL) 2 ML VIAL ONE (08:07)
[2018-05-20] MEDS ORDERED: morphine INJ 10 MG/ML 1ML (SYR OR VIAL) IVP ONE (08:45)
[2018-05-20] MEDS ORDERED: ONDANSETRON 4 MG/2 ML (SDV) Z0FRAN IVP PRN (08:45)
--- NOTE | 2018-05-20 09:25 | Anesthesia-General Post-Op ---
General Patient Condition Mental Status/LOC: Same as Preop Cardiovascular: Satisfactory Nausea/Vomiting: Absent Respiratory: Satisfactory Pain: Controlled Complications: Absent Post Op Complications Complications None Follow Up Care/Instructions Patient Instructions None needed. Anesthesia/Patient Condition Patient Condition Patient is doing well, no complaints, stable vital signs, no apparent adverse anesthesia problems. No complications reported per nursing. NENITA VILLAFANA CRNA May 20, 2018 09:25
[2018-05-20 09:35] VITALS: BP 131/63
[2018-05-20] MEDS: HYDROcodone/APAP 10 MG/325 MG (LORTAB) TAB PO PRN ×2 (10:09→14:19)
--- NOTE | 2018-05-20 11:49 | OPERATIVE REPORT ---
DATE OF SERVICE: 05/20/2018 PREOPERATIVE DIAGNOSES: Mixed urinary incontinence with overactive bladder and intrinsic sphincter deficiency. POSTOPERATIVE DIAGNOSES: Mixed urinary incontinence with overactive bladder and intrinsic sphincter deficiency and cystocele. OPERATION PERFORMED: Anterior repair with pubovaginal sling and cystoscopy. SURGEON: Richard Pepe MD. ANESTHESIA: General. COMPLICATIONS: None. DESCRIPTION OF PROCEDURE: Under satisfactory general anesthesia with the patient in extended lithotomy position, the abdomen, genitalia and thigh were prepped and draped in the usual sterile fashion with a separate vaginal prep. Barney catheter was inserted and the bladder was drained. It was noted that the patient did indeed have some cystocele, so we elected to do an anterior repair at the same time, so I injected 2% lidocaine and epinephrine in the anterior vaginal wall to make an incision vertically. The mucosa was dissected free from the underlying fascia, which was approximated with interrupted 2-0 Vicryl. I went ahead and passed the Solyx device for the pubovaginal sling on both sides using the described technique. The sling was sitting nicely under the mid urethra with no twisting or tension. There was passage of a curved hemostat easily between it and the underlying tissue. I removed the Barney catheter to perform cystoscopy to confirm the integrity of the bladder, ureteral orifices and urethra with no foreign body and presence of the sling under the mid urethra. I left the bladder at least half full to perform manual Valsalva maneuver, it was somewhat positive. So I tightened the sling and that took care of it. Repeating the Valsalva maneuver manually was negative. I reinserted the Barney catheter. I excised some of the anterior vaginal wall mucosa, then reapproximated the rest with a running 2-0 Vicryl Rapide type suture. An Estrace vaginal pack was inserted. Estimated blood loss was less than 50 mL, none of which was replaced. Needle, sponge and instrument counts were correct x 2. The patient tolerated the procedure and anesthesia well and was sent to the recovery room in stable condition. Job ID: [id number] DocumentID: [id number] Dictated Date: 05/20/2018 08:29:55 Steam Conditioner Filling Date: 05/20/2018 11:48:52 Dictated By: RICHARD PEPE MD
[2018-05-20] MEDS: LACTATED RINGERS 1,000 ML IV SCH ×3 (14:18→21:53)
[2018-05-20] MEDS: KETOROLAC 30 MG/ML VIAL IV PRN ×2 (14:18→20:31)
[2018-05-20 19:02] VITALS: BP 122/73
[2018-05-20 20:00] VITALS: BP 117/71
[2018-05-20] MEDS: meTOprolol TARTRATE 25 MG (LOPRESSOR) TABLET PO SCH (20:31)
[2018-05-20] MEDS: hydrALAZINE (APRESOLINE) 25 MG TAB PO SCH (20:31)
[2018-05-20] MEDS ORDERED: SIMVASTATIN PO SCH (21:00)
[2018-05-20] MEDS ORDERED: EZETIMIBE PO SCH (21:00)
[2018-05-21] VITALS: BP 142/66
[2018-05-21] MEDS: KETOROLAC 30 MG/ML VIAL IV PRN (02:44)
[2018-05-21 04:36] VITALS: BP 103/62
[2018-05-21] MEDS ORDERED: LEVOFLOXACIN 250 MG/50 ML IVPB 50 ML IV SCH (07:01)
[2018-05-21 08:00] VITALS: BP 142/72
[2018-05-21] MEDS ORDERED: AZILSARTAN MED PO SCH (09:00)
[2018-05-21] MEDS ORDERED: METFORMIN HCL PO SCH (09:00)
[2018-05-21] MEDS ORDERED: SAXAGLIPTIN HCL PO SCH (09:00)
[2018-05-21] MEDS ORDERED: PANTOPRAZOLE 40 MG (PROTONIX) TAB PO SCH (09:00)
[2018-05-21] MEDS ORDERED: ESTROGENS CONJ 0.625 MG (PREMARIN) TAB PO SCH (09:00)
[2018-05-21] MEDS ORDERED: CHLORTHALIDONE PO SCH (09:00)
[2018-05-21] MEDS: hydrALAZINE (APRESOLINE) 25 MG TAB PO SCH ×2 (10:27→10:31)
[2018-05-21] MEDS: meTOprolol TARTRATE 25 MG (LOPRESSOR) TABLET PO SCH (10:28)
--- NOTE | 2018-05-21 11:15 | Discharge Inst-Urology ---
Discharge Inst-Urology Discharge Medications New, Converted, or Re-newed RX: RX on Chart Patient Instructions/Follow Up Plan Please make appointment to been seen in office in 2 weeks. Rest till then Keep bowels soft and moving Showers, no bath Increase oral fluids for 48 hours and then as needed. Diet as tolerated. If questions or concerns contact your physician Or seek help at emergency department. BALDEV PEPE MD May 21, 2018 11:15 am
[2018-05-21 12:00] VITALS: BP 103/60
--- NOTE | 2018-05-21 13:57 | Anesthesia-General Post-Op ---
General Patient Condition Mental Status/LOC: Same as Preop Cardiovascular: Satisfactory Nausea/Vomiting: Absent Respiratory: Satisfactory Pain: Controlled Complications: Absent Post Op Complications Complications None Follow Up Care/Instructions Patient Instructions None needed. Anesthesia/Patient Condition Patient Condition Patient is doing well, no complaints, stable vital signs, no apparent adverse anesthesia problems. No complications reported per nursing. NENITA VILLAFANA CRNA May 21, 2018 13:57
== END 2018-05-21 12:55 | disposition home or self-care (01) ==
LOC: SDC 06:55 → EDSTATUS 09:15 → WS 09:32 → SDC 05-21 12:55
PROVIDERS: ATTEND Urology
DX: N36.42 Intrinsic sphincter deficiency (ISD) (principal); N39.46 Mixed incontinence; N32.81 Overactive bladder; N81.10 Cystocele, unspecified; E11.9 Type 2 diabetes mellitus without complications; I10 Essential (primary) hypertension; K21.9 Gastro-esophageal reflux disease without esophagitis; Z86.73 Personal history of transient ischemic attack (TIA), and cerebral infarction without residual deficits; Z79.82 Long term (current) use of aspirin; Z79.84 Long term (current) use of oral hypoglycemic drugs
CPT/HCPCS: 82962; 94664

== ENCOUNTER → 2019-02-04 | Outpatient (CLI) | payer MEDICARE, OTHER ==
--- NOTE | 2019-02-04 12:07 | Diagnostic Imaging Report ---
INDICATION: Routine screening. COMPARISON: 01/31/2018 and 01/30/2017. TECHNIQUE: 2D and 3D bilateral screening mammography was performed with CAD. FINDINGS: Scattered fibroglandular densities are identified bilaterally. A nodular density in the upper outer right breast is stable and most consistent with benign etiology. No spiculated masses or malignant appearing microcalcifications are seen. The axillae are unremarkable. IMPRESSION: No mammographic features suspicious for malignancy are identified. ACR BI-RADS Category 2: Benign findings. Result letter will be mailed to the patient. Note: At least 10% of breast cancer is not imaged by mammography. Dictated by: Dictated on workstation # [id number]
== END ==
LOC: RAD 11:12
PROVIDERS: ATTEND Family Medicine
DX: Z12.31 Encounter for screening mammogram for malignant neoplasm of breast (principal)
CPT/HCPCS: 77067

== ENCOUNTER → 2019-08-03 | Outpatient (CLI) | payer MEDICARE, OTHER | LOC: CARD 10:16 | PROVIDERS: ATTEND Internal Medicine Cardiovascular Disease | DX: I08.0 Rheumatic disorders of both mitral and aortic valves (principal); I25.10 Atherosclerotic heart disease of native coronary artery without angina pectoris; I65.23 Occlusion and stenosis of bilateral carotid arteries; E11.9 Type 2 diabetes mellitus without complications; R01.2 Other cardiac sounds | CPT/HCPCS: 93306 ==

== ENCOUNTER → 2020-01-19 | Outpatient (CLI) | payer MEDICARE, OTHER ==
[~2020-01-19] MED LIST changes: +IBAN150T21 PO; -IBAN150T8 PO; +IRBE300T17; -IRBE300T18
--- NOTE | 2020-01-19 13:46 | Diagnostic Imaging Report ---
INDICATION: Neck pain posteriorly. TIME OF EXAM: 1:38 PM. TECHNIQUE: AP, lateral, and odontoid views were obtained. FINDINGS: The curvature of the cervical spine is normal. There is minimal anterolisthesis of C3 on C4, C4 on C5, and C7 on T1. There is degenerative disc disease at the C5-C6, C6-C7, and C7-T1 levels with disc space narrowing and marginal spurring. No fractures are identified. The odontoid appears intact. The prevertebral tissues are within normal limits. IMPRESSION: Cervical spondylosis. No acute bony abnormality is detected. Dictated by: Dictated on workstation # [id number]
== END ==
LOC: RAD 13:22
PROVIDERS: ATTEND Family Medicine
DX: M47.812 Spondylosis without myelopathy or radiculopathy, cervical region (principal)
CPT/HCPCS: 72040

== ENCOUNTER → 2020-02-08 | Outpatient (CLI) | payer MEDICARE, OTHER ==
--- NOTE | 2020-02-08 13:47 | Diagnostic Imaging Report ---
EXAMINATION: Digital mammogram bilateral screening mammography with CAD. INDICATION: Screening. COMPARISON: This study was compared with the prior exams of 02/04/2019, 01/30/2018, and 01/29/2017. PERSONAL HISTORY: At this time, there are no current complaints. FINDINGS: There are scattered fibroglandular densities in both breasts which could obscure a lesion. Overall, there does not appear to have been any significant change when compared to the prior exam. No primary or secondary sign of malignancy is noted. IMPRESSION: There is no radiographic evidence for malignancy. ACR BI-RADS Category 1: Negative. Result letter will be mailed to the patient. Note: At least 10% of breast cancer is not imaged by mammography. Dictated by: Dictated on workstation # [id number]
== END ==
LOC: RAD 10:34
PROVIDERS: ATTEND Family Medicine
DX: Z12.31 Encounter for screening mammogram for malignant neoplasm of breast (principal); M54.2 Cervicalgia
CPT/HCPCS: 77063; 77067

== ENCOUNTER → 2021-02-08 | Outpatient (CLI) | payer MEDICARE, OTHER ==
[~2021-02-08] MED LIST changes: -PANT40TA3; -PANT40TA3 PO; +PANT40TA52; +PANT40TA52 PO
--- NOTE | 2021-02-08 14:34 | Diagnostic Imaging Report ---
Indication: Routine screening. Comparison is made with prior mammogram 02/08/2020 and 02/04/2019. 2-D and 3-D bilateral screening mammography was performed with CAD. Scattered fibroglandular densities are identified bilaterally. A circumscribed mass in the upper and outer aspect of the right breast appears stable. No spiculated mass or malignant appearing microcalcifications are seen. There are benign calcifications bilaterally. Axillae are unremarkable. IMPRESSION: BI-RADS Category 2 No mammographic features suspicious for malignancy are identified. ACR BI-RADS Category 2: Benign findings. Result letter will be mailed to the patient. Note: At least 10% of breast cancer is not imaged by mammography. Dictated by: Dictated on workstation # [id number]
== END ==
LOC: RAD 11:15
PROVIDERS: ATTEND Family Medicine
DX: Z12.31 Encounter for screening mammogram for malignant neoplasm of breast (principal)
CPT/HCPCS: 77063; 77067

== ENCOUNTER → 2022-03-06 | Outpatient (CLI) | payer MEDICARE, OTHER ==
--- NOTE | 2022-03-06 15:43 | Diagnostic Imaging Report ---
INDICATION: 76-year-old postmenopausal female: COMPARISON: None FINDINGS: AP Spine L1-L4: [BMD (g/cm2): 1.110] [T-Score: -0.8] [Z-Score: 1.2] [BMD Previous: NA] [BMD % Change: NA] LT Hip Neck: [BMD (g/cm2): 0.834] [T-Score: -1.5] [Z-Score: 0.6] LT Hip Total: [BMD (g/cm2):0.879] [T-Score:-1.0] [Z-Score: 0.9] [BMD Previous: NA] [BMD % Change: NA] RT Hip Neck: [BMD (g/cm2):0.827] [T-Score:-1.5] [Z-Score:0.5] RT Hip Total: [BMD (g/cm2):0.845] [T-score:-1.3] [Z-Score:0.6] [BMD Previous:NA] [BMD % Change:NA] World Health Organization criteria for BMD interpretation classify patients as Normal (T-score at or above -1.0), Osteopenic (T-score between -1.0 and -2.5) or Osteoporotic (T-score at or below -2.5). LIMITATIONS AND MODIFICATION: None. FRACTURE RISK (FRAX SCORE): The ten year probability of (%): Major Osteoporotic Fracture: [17.3] Hip Fracture: [3.4] IMPRESSION: 1. Osteopenia (Low bone mass). 2. Baseline examination. 3. See below National Osteoporosis Foundation guidelines on when to potentially initiate pharmacologic therapy. Based on the National Osteoporosis Foundation Guidelines, pharmacologic treatment should be initiated in any of the following, unless clinical conditions suggest otherwise: * Any patient with prior fragility fracture of the hip or vertebrae. A spine fracture indicates 5X risk for subsequent spine fracture and 2X risk for subsequent hip fracture. * Osteoporosis (T-score <-2.5). * Postmenopausal women and men age 50 and older with low bone mass/osteopenia (T-score between -1.0 and -2.5) by DXA and 10-year major osteoporotic fracture greater than 20% or a 10-year probability of hip fracture greater than 3%. These fracture risks are supplied above in the FRAX score, if applicable. * Clinician judgement and/or patient preferences may indicate treatment for people with 10-year fracture probabilities above or below these levels. Dictated by: Dictated on workstation # [id number]
--- NOTE | 2022-03-06 17:05 | Diagnostic Imaging Report ---
INDICATION: Routine screening. COMPARISON: 02/08/2021 and 02/08/2020. TECHNIQUE: 2D and 3D bilateral screening mammography was performed with CAD. FINDINGS: Scattered fibroglandular densities are identified bilaterally. A density in the outer right breast at mid depth appears stable. The left breast is stable. No new mass or malignant-appearing microcalcifications are seen. The axillae are unremarkable. IMPRESSION: No mammographic features suspicious for malignancy are identified. ACR BI-RADS Category 2: Benign findings. Result letter will be mailed to the patient. Note: At least 10% of breast cancer is not imaged by mammography. Dictated by: Dictated on workstation # [id number]
== END ==
LOC: RAD 13:45
PROVIDERS: ATTEND Family Medicine
DX: Z12.31 Encounter for screening mammogram for malignant neoplasm of breast (principal); M85.80 Other specified disorders of bone density and structure, unspecified site; Z78.0 Asymptomatic menopausal state
CPT/HCPCS: 77063; 77067; 77080

== ENCOUNTER → 2022-03-20 | Outpatient (CLI) | payer MEDICARE, OTHER | LOC: CARD 11:09 | PROVIDERS: ATTEND Internal Medicine Cardiovascular Disease | DX: I08.0 Rheumatic disorders of both mitral and aortic valves (principal) | CPT/HCPCS: 93306 ==

== ENCOUNTER → 2023-03-07 | Outpatient (CLI) | payer MEDICARE, OTHER ==
[~2023-03-07] MED LIST changes: -EZET1TAB29 PO; +[UNRECOGNIZED DRUG - CODE] PO
--- NOTE | 2023-03-08 11:53 | Diagnostic Imaging Report ---
Indication: Routine screening. Comparison is made with prior mammograms from 03/06/2022 and 02/08/2021. 2-D and 3-D bilateral screening mammography was performed with CAD. Scattered fibroglandular densities are identified bilaterally. The benign nodule in the outer right breast appears stable. No new mass or malignant-appearing microcalcifications are seen. There are vascular calcifications bilaterally. IMPRESSION: BI-RADS Category 2 No mammographic features suspicious for malignancy are identified. ACR BI-RADS Category 2: Benign findings. Result letter will be mailed to the patient. Note: At least 10% of breast cancer is not imaged by mammography. Dictated by: Dictated on workstation # [id number]
== END ==
LOC: RAD 09:55
PROVIDERS: ATTEND Family Medicine
DX: Z12.31 Encounter for screening mammogram for malignant neoplasm of breast (principal)
CPT/HCPCS: 77063; 77067